=== PATIENT | female | born 1960 ===

== ENCOUNTER 2025-05-09 14:17 | Emergency (ER) | payer BC, OTHER, SELFPAY ==
[2025-05-09 14:20] VITALS: BP 146/90; PULSE 69; RESP 18; TEMP 36.6; O2SAT 96
[2025-05-09 14:44] LABS: Glucose Negative (Negative)
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
[2025-05-09] MEDS: Ibuprofen 600 MG TAB PO (16:15)
== END 2025-05-09 16:16 | disposition home or self-care (01) ==
LOC: ER 05-10 10:43
PROVIDERS: Emergency Provider Emergency Medicine
DX: S16.1XXA Strain of muscle, fascia and tendon at neck level, initial encounter (principal); S09.90XA Unspecified injury of head, initial encounter; V19.3XXA Pedal cyclist (driver) (passenger) injured in unspecified nontraffic accident, initial encounter
CPT/HCPCS: 99284 ×2; 70450; 72125; 81003